=== PATIENT | female | born 1930 | race Caucasian/White ===

== ENCOUNTER 2016-03-26 01:32 | Day surgery (SDC) | payer MEDICARE, OTHER ==
[2016-03-26] VITALS (30 sets, daily range): BP systolic 71–184; BP diastolic 33–55; PULSE 69–85; RESP 14–22; O2SAT 90–99
[~2016-03-26] VITALS: Ht 154.9 cm; Wt 65.0 kg
[~2016-03-26 01:32] MED LIST: AMLO10TA3 PO; ASPI-973 PO; ATOR20TA PO; NITR0.4T SL; OXYB5TAB10 PO; POLY17PO6 PO
[2016-03-26] MEDS ORDERED: 0.9% Sodium Chloride 1,000 ML IV ONE (06:18)
--- NOTE | 2016-03-26 09:43 | NUR ---
Patient admitted for heart cath accompanied by her daughter. Patient is alert and oriented though she does have short term memory deficit. Daughter plans on staying with her for the duration of her time here.
[2016-03-26] MEDS ORDERED: Heparin 5,000 Units/500 mL NS Premix IV ONE (09:59)
[2016-03-26] MEDS ORDERED: Heparin 1,000 Unit/mL 10 mL Inj ONE (09:59)
[2016-03-26] MEDS ORDERED: Heparin 1,000 Units/500 mL NS Premix IV ONE (09:59)
[2016-03-26] MEDS ORDERED: OXYB5TAB10 PO (10:25)
[2016-03-26] MEDS ORDERED: MULT-1018 PO (10:25)
[2016-03-26] MEDS ORDERED: BIOT10003 PO (10:25)
[2016-03-26] MEDS ORDERED: CALCIT PO (10:25)
[2016-03-26] MEDS ORDERED: tylenol PO (10:25)
[2016-03-26] MEDS ORDERED: CHOL100043 PO (10:25)
[2016-03-26] MEDS ORDERED: UBID300C PO (10:25)
[2016-03-26] MEDS ORDERED: VITA150T PO (10:25)
[2016-03-26] MEDS ORDERED: Atropine 1 mg/10 mL (Code) Syringe ONE (11:57)
[2016-03-26] MEDS ORDERED: hydrALAZINE 20 mg/mL Inj ONE (11:59)
[2016-03-26] MEDS ORDERED: Phenylephrine/NS-PF 100 mCg/mL 5 mL Syringe IVPUSH ONE ×2 (12:05→13:57)
[2016-03-26] MEDS ORDERED: 0.9% Sodium Chloride 1,000 ML IV SCH (12:29)
[2016-03-26] MEDS ORDERED: Ondansetron 2 mg/mL 2 mL Inj IVPUSH PRN (12:30)
[2016-03-26] MEDS ORDERED: HYDROcodone-APAP 5-325 mg Tablet PO PRN (12:30)
[2016-03-26] MEDS ORDERED: Atropine 1 mg/10 mL (Code) Syringe IVPUSH PRN (12:30)
--- NOTE | 2016-03-26 13:23 | NUR ---
Patient has been conplaining of feeling cold with some shivering noted. Pt given warm blankets, satnam wright ordered, patient's axillary temp 36 on return from solar lab technician to 36.5.
[2016-03-26] MEDS ORDERED: Phenylephrine Inj 20,000 MCG in 0.9% Sodium Chloride 248 ML IV SCH (14:00)
--- NOTE | 2016-03-26 14:01 | CS94 ---
[address] [address] DIAGNOSTIC CARDIAC CATHETERIZATION PATIENT: JUNI ROSSI : 1930 MR#: [id number] ADMIT: 03/26/2016 JOB ID: [id number] SERVICE DATE: 03/26/2016 CHIEF COMPLAINT: Critical aortic stenosis in an 86-year-old woman with hyperlipidemia. She has also exertional chest pressure. EKG with possible left atrial enlargement and PVCs, otherwise normal. PROCEDURES PERFORMED: 1. Left heart catheterization-selective coronary angiogram. 2. Right common femoral artery vascular access with femoral angiogram to confirm placement. 3. Coronary angiograms-left heart catheterization. 4. Ventriculogram was deferred by intention because I did not want across the critically tight aortic valve. 5. Manual hold for closure. METHOD: Following informed consent, the patient was sedated. A six-Mongolian sheath was placed in the right superficial femoral artery. Sheath placement was confirmed via femoral angiogram. JL4 and JR4 catheters were used to engage the left main and right coronary artery ostia, respectively. Hand injection and craniocaudal angulation were used to obtain selective coronary angiograms. All exchanges were performed over a wire. Unfortunately the JL4 was selectively engaging the circumflex so I had to change the catheter and use a JL3.5 to more selectively engage the LAD. Manual hold was used to obtain hemostasis because it turned out that she has a high bifurcation and I stuck the profunda. FINDINGS: HEMODYNAMICS: Patient was very hypertensive in the beginning of the case. Her systolic blood pressure was 1/75 mmHg. Mean arterial pressure fluctuated between 90 and 110 mmHg. As we the sedated the patient, blood pressure did not really come down very well, so I gave her 10 mg of hydralazine IV. Unfortunately, she had an exaggerated reaction to the hydralazine and her systolic blood pressure fell into the 70 mmHg range. It responded favorably to normal saline injection and atropine for her possible vagal reaction. The patient was in normal sinus rhythm throughout the case. Her heart rate fluctuated between 80-90 beats per minute during the case and after the groin pull she had a vagal reaction and her heart rate was 50 per minute. CORONARY ANGIOGRAMS: Left main is a short vessel. It gives rise to LAD and midcircumflex. There is excellent blow-back and no dampening on engagement. LAD wraps around the apex. It gives rise to one medium-sized diagonal branch, a second medium sized diagonal branch, then it gives rise to 3rd very large bifurcating diagonal branch. There is mild mid LAD lesion before the large first diagonal branch, but it does not appear to be hemodynamically significant. There is also 40% stenosis distal to the large 3rd branching diagonal vessel, but again it does not appear to be hemodynamically significant. ASSESSMENT: The circumflex is, I think, a codominant vessel. It gives rise to a very very big first branching obtuse marginal vessel and then it gives rise to a second obtuse marginal which functions as a PDA gives rise to multiple septal perforators. There is faint evidence of left to right collaterals suggestive of a hemodynamically significant right coronary artery lesion. The circumflex has no hemodynamically significant disease. The right coronary artery is a codominant vessel. It demonstrates some spasm in the proximal portion of the right coronary artery, then unfortunately demonstrates 90% stenosis in the midportion of right coronary artery. It appears to be heavily calcified. The right coronary artery gives rise to PDA and posterior lateral branch. The PDA can be seen actually being filled via left to right collaterals on some views. Femoral angiogram: Patient has a very high bifurcation. She actually has, interestingly enough, 2 profunda vessels. The sheath enters the superficial femoral artery at the lower third of the femoral head and there is no evidence of contrast extravasation or dissection. Manual hold was used to obtain hemostasis. PLAN: Given the technical difficulty of the right coronary artery lesion, and its appearance is more consistent with chronic lesion, I would recommend for her to be transferred to a higher level of care where her transcatheter aortic valve replacement can be performed in conjunction with the percutaneous intervention, and I will make those arrangements shortly. The patient's family would prefer for her to have these treatments together rather than have us do an intervention here and then have the TAVR outside. Thank you for the opportunity to evaluate her.
--- NOTE | 2016-03-26 15:59 | NUR ---
Pt c/o waxing and waning nausea and back discomfort. Zofran iv given. Pt then c/o chest discomfort -05/02, pt placed on O2 - 3L per Nasal cannula and 12 lead completed at bedside. Reluctant to give Ntg 2nd patient's labile BP.Pain resolving after placing on O2. Dr Barnes informed.
--- NOTE | 2016-03-26 17:30 | NUR ---
Report given to Kevin Alfaro at [facility]. Awaiting transport team.
--- NOTE | 2016-03-26 18:00 | NUR ---
AMBULANCE SERVICE HERE TO TX PATIENT TO [facility]. SHE REMAINS STABLE OFF PRESSOR SUPPORT FOR BP. RIGHT GROIN INTACT AFTER SITTING UP AND DANGLING FOR ABOUT ONE HOUR. REPORT TO MAURO Garcia TRANSPORT R.N. NS CONTINUES AT 100CC/HR. O2 SAT 98% ON ROOM AIR, LUNGS ARE CLEAR, NO FURTHER CHEST PAIN SINCE 16:00 AND REMAINS IN SINUS RHYTHM.
== END 2016-03-26 23:59 | disposition home or self-care (01) ==
LOC: SOUO 01:32
PROVIDERS: ATTEND Internal Medicine
DX: I35.0 Nonrheumatic aortic (valve) stenosis (principal); E78.5 Hyperlipidemia, unspecified; I25.10 Atherosclerotic heart disease of native coronary artery without angina pectoris; E78.00 Pure hypercholesterolemia, unspecified; Z79.82 Long term (current) use of aspirin
CPT/HCPCS: 93005; 93454; C1769; J0360; J1200; J1644; J2060; J2405; J7030; Q9967